=== PATIENT | female | born 1975 | race Caucasian/White ===

== ENCOUNTER 2017-09-04 12:24 | Emergency (ER) | payer SELFPAY ==
[~2017-09-04] VITALS: Wt 122.0 kg
[~2017-09-04 12:24] MED LIST: ABILIFY10 MG PO; ANAPROX DS550 MG PO; BIAXIN500 MG PO; CLARITIN10 MG PO; COMBIVENT1 ARO IH; DAYPRO600 M1 PO; LAMICTAL100 MG PO; MEDROL DOSEPAK4 MG PO; MOTRIN800 MG PO; PERCOCET 325 MG1 TA2 PO; ROBAXIN750 MG PO; VICODIN 500 MG-1 TAB PO; WELLBUTRIN100 MG
== END 2017-09-04 14:44 | disposition home or self-care (01) ==
LOC: ED 12:24
DX: I83.892 Varicose veins of left lower extremity with other complications (principal); Z87.891 Personal history of nicotine dependence

== ENCOUNTER → 2020-09-24 | Outpatient (CLI) | payer OTHER | END | disposition home or self-care (01) | LOC: MAMMO 14:26 | PROVIDERS: ATTEND Nurse Practitioner Family | DX: Z12.31 Encounter for screening mammogram for malignant neoplasm of breast (principal) ==

== ENCOUNTER → 2021-09-26 | Outpatient (CLI) | payer BC | END | disposition home or self-care (01) | LOC: MAMMO 09:22 | PROVIDERS: ATTEND Nurse Practitioner Family | DX: Z12.31 Encounter for screening mammogram for malignant neoplasm of breast (principal) ==

== ENCOUNTER → 2023-01-05 | Outpatient (CLI) | payer OTHER | LOC: MAMMO 11:30 | PROVIDERS: ATTEND Nurse Practitioner Primary Care | DX: Z12.31 Encounter for screening mammogram for malignant neoplasm of breast (principal) ==

== ENCOUNTER → 2024-01-21 | Outpatient (CLI) | payer OTHER | END | disposition home or self-care (01) | LOC: MAMMO 09:56 | PROVIDERS: ATTEND Nurse Practitioner | DX: Z12.31 Encounter for screening mammogram for malignant neoplasm of breast (principal); N64.9 Disorder of breast, unspecified ==

== ENCOUNTER → 2024-02-08 | Day surgery (SDC) | payer OTHER ==
[~2024-02-08] VITALS: Ht 167.6 cm; Wt 118.4 kg
[~2024-02-08] MED LIST changes: +ATORVASTATIN CALCIUM 10 MG TAB PO SCH; +Cholecalciferol 5,000 IU CAP (125 MCG) PO SCH; +FENOFIBRATE 48 MG TAB PO SCH; +Midazolam Hydrochloride 2 MG/2 ML VIAL IV ONE; +PAXIL40 M1 PO; +PRAVASTATIN SOD40 MG PO; +PROPOFOL 200 MG/20 ML VIAL IV ONE; +SODIUM CHLORIDE 0.9% 1,000 ML IV ONE; +SODIUM CHLORIDE 0.9% 1,000 ML IV SCH; +TRICOR48 MG PO; +VITAMIN D310 MC1 PO
[2024-02-08 08:20] VITALS: BP 144/77
[2024-02-08 12:44] VITALS: BP 140/73
[2024-02-08 12:59] VITALS: BP 149/83
[2024-02-08 13:13] VITALS: BP 129/91
== END | disposition home or self-care (01) ==
LOC: SDC 02-04 08:00
PROVIDERS: ATTEND Surgery
DX: Z12.11 Encounter for screening for malignant neoplasm of colon (principal); D12.5 Benign neoplasm of sigmoid colon; D12.8 Benign neoplasm of rectum; E78.00 Pure hypercholesterolemia, unspecified; F41.9 Anxiety disorder, unspecified; F31.9 Bipolar disorder, unspecified; G47.30 Sleep apnea, unspecified; F17.210 Nicotine dependence, cigarettes, uncomplicated; Z90.710 Acquired absence of both cervix and uterus; Z98.890 Other specified postprocedural states; Z82.49 Family history of ischemic heart disease and other diseases of the circulatory system

== ENCOUNTER → 2024-10-04 | Outpatient (CLI) | payer OTHER ==
[~2024-10-04] MED LIST changes: -ATORVASTATIN CALCIUM 10 MG TAB PO SCH; -Cholecalciferol 5,000 IU CAP (125 MCG) PO SCH; -FENOFIBRATE 48 MG TAB PO SCH; -Midazolam Hydrochloride 2 MG/2 ML VIAL IV ONE; -PROPOFOL 200 MG/20 ML VIAL IV ONE; -SODIUM CHLORIDE 0.9% 1,000 ML IV ONE; -SODIUM CHLORIDE 0.9% 1,000 ML IV SCH
== END | disposition home or self-care (01) ==
LOC: RAD 15:06
PROVIDERS: ATTEND Nurse Practitioner
DX: R05.3 Chronic cough (principal)

== ENCOUNTER 2024-10-12 14:49 | Emergency (ER) | payer OTHER ==
[~2024-10-12] VITALS: Ht 167.6 cm; Wt 125.2 kg
[2024-10-12] MEDS ORDERED: Ketorolac Tromethamine 15 MG/ML VIAL IV ONE (15:50)
[2024-10-12 16:07] LABS: BASO # 0.1 10*3/uL (0.0-0.1); EOS # 0.5 10*3/uL (0.0-0.4); EOS % 3.7 % (1.0-4.0); HEMATOCRIT 38.6 % (37.0-47.0); MEAN CELL VOLUME 87.9 fl (81.0-99.0); MEAN CORPUSCULAR HGB 29.2 pg (27.0-31.0); MEAN CORPUSCULAR HGB CONC 33.2 g/dl (33.0-37.0); MEAN PLATELET VOLUME 9.7 fl (9.6-12.3); MONO # 1.3 10*3/uL (0.1-1.0); MONO % 9.8 % (3.0-9.0); NEUT # 9.5 10*3/uL (2.3-7.9); NEUT % 69.6 % (47.0-73.0); PLATELET COUNT AUTOMATED 442 10*3/uL (130-400); RED BLOOD COUNT 4.39 10*6/uL (4.10-5.10); RED CELL DISTRI WIDTH 12.1 % (0-14.5); WHITE BLOOD COUNT 13.7 10*3/uL (4.8-10.8)
[2024-10-12 16:23] LABS: BUN 14 mg/dl (9-23); CHLORIDE 102 mmol/L (98-107); POTASSIUM 3.7 mmol/L (3.4-5.1)
[2024-10-12] MEDS ORDERED: AVPAK AZITHROM250 M1 PO (16:42)
== END 2024-10-12 16:56 | disposition home or self-care (01) ==
LOC: ED 14:49
PROVIDERS: Emergency Medicine
DX: J40 Bronchitis, not specified as acute or chronic (principal); F17.210 Nicotine dependence, cigarettes, uncomplicated; Z79.899 Other long term (current) drug therapy; Z87.42 Personal history of other diseases of the female genital tract; Z90.711 Acquired absence of uterus with remaining cervical stump

== ENCOUNTER 2024-10-23 12:32 | Emergency (ER) | payer OTHER ==
[~2024-10-23] VITALS: Ht 294.6 cm; Wt 126.1 kg
[~2024-10-23 12:32] MED LIST changes: +AVPAK AZITHROM250 M1 PO
[2024-10-23] MEDS ORDERED: Acetaminophen/Oxycodone 5 MG/325 MG TABLET PO ONE (12:35)
[2024-10-23] MEDS ORDERED: MELOXICAM15 MG PO (13:01)
== END 2024-10-23 14:25 | disposition home or self-care (01) ==
LOC: ED 12:32
DX: S93.401A Sprain of unspecified ligament of right ankle, initial encounter (principal); F41.9 Anxiety disorder, unspecified; F31.9 Bipolar disorder, unspecified; E78.00 Pure hypercholesterolemia, unspecified; Z90.710 Acquired absence of both cervix and uterus; Z98.890 Other specified postprocedural states; W10.9XXA Fall (on) (from) unspecified stairs and steps, initial encounter; Y93.89 Activity, other specified; Y92.89 Other specified places as the place of occurrence of the external cause; Y99.8 Other external cause status

== ENCOUNTER → 2025-04-04 | Outpatient (CLI) | payer OTHER ==
[~2025-04-04] MED LIST changes: +MELOXICAM15 MG PO
== END | disposition home or self-care (01) ==
LOC: MAMMO 16:40
PROVIDERS: ATTEND Nurse Practitioner Women's Health
DX: Z12.31 Encounter for screening mammogram for malignant neoplasm of breast (principal); N63.10 Unspecified lump in the right breast, unspecified quadrant; R92.323 Mammographic fibroglandular density, bilateral breasts

== ENCOUNTER → 2025-04-20 | Outpatient (CLI) | payer OTHER | END | disposition home or self-care (01) | LOC: US 13:26 | PROVIDERS: ATTEND Nurse Practitioner Women's Health | DX: N60.01 Solitary cyst of right breast (principal); N63.0 Unspecified lump in unspecified breast ==

== ENCOUNTER 2025-08-02 08:46 | Emergency (ER) | payer OTHER ==
[~2025-08-02] VITALS: Ht 167.6 cm; Wt 126.1 kg
[2025-08-02] MEDS ORDERED: diphenhydrAMINE hydrochloride 50 MG/ML VIAL IV ONE (09:00)
[2025-08-02] MEDS ORDERED: SODIUM CHLORIDE 0.9% 1,000 ML IV ONE (09:00)
[2025-08-02] MEDS ORDERED: BENADRYL ALLERG25 M5 PO (09:04)
[2025-08-02] MEDS ORDERED: PREDNISONE20 M1 PO (09:04)
[2025-08-02 09:27] LABS: BASO # 0.1 10*3/uL (0.0-0.1); BASO % 1.0 % (0.0-1.0); EOS # 0.4 10*3/uL (0.0-0.4); EOS % 3.5 % (1.0-4.0); MEAN CELL VOLUME 89.8 fl (81.0-99.0); MEAN CORPUSCULAR HGB 29.1 pg (27.0-31.0); MEAN PLATELET VOLUME 10.2 fl (9.6-12.3); MONO # 1.3 10*3/uL (0.1-1.0); MONO % 10.2 % (3.0-9.0); NEUT # 8.5 10*3/uL (2.3-7.9); NEUT % 68.2 % (47.0-73.0); NUCLEATED RED BLOOD CELL 0.0 % (0.0-0.0); NUCLEATED RED BLOOD CELL 0.0 10*3/uL (0.0-0.0); PLATELET COUNT AUTOMATED 394 10*3/uL (130-400); RED CELL DISTRI WIDTH 12.3 % (0-14.5)
[2025-08-02 09:49] LABS: BUN 14 mg/dl (9-23)
== END 2025-08-02 13:57 | disposition home or self-care (01) ==
LOC: ED 08:46
PROVIDERS: Emergency Medicine
DX: T63.441A Toxic effect of venom of bees, accidental (unintentional), initial encounter (principal); L53.0 Toxic erythema; Z79.899 Other long term (current) drug therapy; Z87.42 Personal history of other diseases of the female genital tract; Z90.710 Acquired absence of both cervix and uterus; Y92.89 Other specified places as the place of occurrence of the external cause